=== PATIENT | female | born 1960 | race Caucasian/White ===

== ENCOUNTER 2018-01-09 10:29 | Observation (INO) ==
[2018-01-09] MEDS ORDERED: Sod Chloride 0.9% Inj 1,000 ML IV.SIG ONE (11:23)
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
[2018-01-09 12:10] VITALS: TEMP 98.5
[2018-01-09 12:13] LABS: Baso # (Auto) 0.1 th/mm3 (0.0-0.2); Baso % (Auto) 0.6 % (0.0-2.0); Eos % (Auto) 0.2 % (0.0-4.0); Hematocrit 40.9 % (35.0-46.0); Hemoglobin 13.8 gm/dL (11.6-15.3); Lymph # (Auto) 0.7 th/mm3 (1.0-4.8); Lymph % (Auto) 7.8 % (9.0-44.0); Mean Corpuscular HGB Conc 33.8 % (32.0-36.0); Mean Corpuscular Hemoglobin 30.6 pg (27.0-34.0); Mean Corpuscular Volume 90.7 fL (80.0-100.0); Mono # (Auto) 0.5 th/mm3 (0.0-0.9); Mono % (Auto) 5.8 % (0.0-8.0); Neut % (Auto) 85.6 % (16.0-70.0); Platelet Count 230 th/mm3 (150-450); Red Blood Count 4.51 mil/mm3 (4.00-5.30); Red Cell Distribution Width 11.9 % (11.6-17.2); White Blood Count 9.4 th/mm3 (4.0-11.0)
[2018-01-09 12:42] LABS: Albumin 3.9 g/dL (3.4-5.0); Anion Gap 6 meq/L (5-15); Aspartate Aminotransferase 25 U/L (15-37); Blood Urea Nitrogen 16 mg/dL (7-18); Carbon Dioxide 27.1 meq/L (21.0-32.0); Chloride 107 meq/L (98-107); Glomerular Filtration Rate 73 mL/min (>89); Glucose,Random 101 mg/dL (74-106); Lipase 267 U/L (73-393); Potassium 4.1 meq/L (3.5-5.1); Sodium 140 meq/L (136-145)
[2018-01-09 12:49] LABS: Alanine Aminotransferase 30 U/L (10-53); Alkaline Phosphatase 61 U/L (45-117); Total Protein 7.4 g/dL (6.4-8.2)
--- NOTE | 2018-01-09 14:04 | CT ---
EXAM DATE: 01/09/2018 1:51 PM EDT AGE/SEX: 57 years / Female INDICATIONS: Memory loss last three days. CLINICAL DATA: This is the patient's initial encounter. Patient reports that signs and symptoms have been present for 3 days and indicates a pain score of 0/10. MEDICAL/SURGICAL HISTORY: None. . hernia repair RADIATION DOSE: 66.36 CTDI (mGy) COMPARISON: No prior exams available for comparison. TECHNIQUE: CT of the head without contrast. Using automated exposure control and adjustment of the mA and/or kV according to patient size, radiation dose was kept as low as reasonably achievable to ob tain optimal diagnostic quality images. DICOM format image data is available electronically for revi ew and comparison. FINDINGS: Cerebrum: The ventricles are normal for age. No evidence of midline shift, mass lesion, hemorrhage o r acute infarction. No extraaxial fluid collections are seen. Posterior Fossa: The cerebellum and brainstem are intact. The 4th ventricle is midline. The cerebe llopontine angle is unremarkable. Extracranial: The visualized portion of the orbits is intact. Skull: The calvaria is intact. No evidence of skull fracture. CONCLUSION: 1. No acute intracranial abnormality. . Electronically signed by: Leo Quintanilla MD 01/09/2018 2:02 PM EDT
[2018-01-09] MEDS ORDERED: Bisacodyl 10 MG Supp RECTAL PRN (14:29)
[2018-01-09] MEDS ORDERED: Acetaminophen 325 MG Tablet PO PRN (14:29)
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
--- NOTE | 2018-01-09 15:49 | US ---
EXAM DATE: 01/09/2018 3:46 PM EDT AGE/SEX: 57 years / Female INDICATIONS: Confusion. CLINICAL DATA: This is the patient's initial encounter. Patient reports that signs and symptoms have been present for 1 day and indicates a pain score of 0/10. MEDICAL/SURGICAL HISTORY: . Altered mental status changes. . Hernia repair. Dilation and Cure ttage. COMPARISON: No prior exams available for comparison. VELOCITY PARAMETERS: ICA/CCA Ratio: Right 1.0 , Left 1.0 ICA: Right 90 cm/sec, Left 103 cm/sec CCA: Right 89 cm/sec, Left 105 cm/sec ECA: Right 62 cm/sec, Left 92 cm/sec Vertebral: Right 71 cm/sec antegrade, Left 67 cm/sec antegrade FINDINGS: Right Carotid: No significant plaque is visualized.The waveforms are within normal limits. Left Carotid: No significant plaque is visualized. The waveforms are within normal limits. Other: None. CONCLUSION: 1. Right Internal Carotid Artery: No significant stenosis or atherosclerotic plaque is visualized. 2. Left Internal Carotid Artery: No significant stenosis or atherosclerotic plaque is visualized. Electronically signed by: Leo Quintanilla MD 01/09/2018 3:48 PM EDT
--- NOTE | 2018-01-09 16:37 | MR ---
EXAM DATE: 01/09/2018 4:24 PM EDT AGE/SEX: 57 years / Female INDICATIONS: Memory loss. CLINICAL DATA: This is the patient's initial encounter. Patient reports that signs and symptoms have been present for 1 day and indicates a pain score of 0/10. MEDICAL/SURGICAL HISTORY: None. Inguinal hernia repair. COMPARISON: [facility] [place], 01/09/2018. . TECHNIQUE: 3D [id number] MRA was performed. Source images, multiplanar STS MIP, and 3D volum e MIP reconstructions were reviewed. FINDINGS: Anterior Circulation: Intracranial Carotid Arteries: Patent. WOLF: There is no evidence for aneurysm, vessel truncation or stenosis, and no evidence for vascular m alformation. MCA: There is no evidence for aneurysm, vessel truncation or stenosis, and no evidence for vascular m alformation. Posterior Circulation: Distal Vertebral Arteries: Distal Vertebral arteries are symetrical and patent. Basilar Artery: There is no evidence for aneurysm, vessel truncation or stenosis, and no evidence for vascular malformation. INSULATION BLOWER and Cerebellar Branches: origin of the left INSULATION BLOWER. There is no evidence for aneurysm, vessel truncation or stenosis, and no evidence for vascular malformation. CONCLUSION: 1. Negative MRA [place] ([place]) non contrast. Electronically signed by: Leo Quintanilla MD 01/09/2018 4:36 PM EDT
--- NOTE | 2018-01-09 16:46 | MR ---
EXAM DATE: 01/09/2018 4:19 PM EDT AGE/SEX: 57 years / Female INDICATIONS: Memory loss. CLINICAL DATA: This is the patient's initial encounter. Patient reports that signs and symptoms have been present for 1 day and indicates a pain score of 0/10. MEDICAL/SURGICAL HISTORY: None. Inguinal hernia repair. COMPARISON: No prior exams available for comparison. TECHNIQUE: Multiplanar, multisequence examination of the brain was performed without contrast. FINDINGS: Cerebrum: The ventricles are normal for age. No evidence of midline shift, mass lesion, hemorrhage or acute infarction. No extraaxial fluid collections are seen. The pituitary gland and suprasellar cistern are normal in configuration. White Matter: No significant signal abnormalities are seen in the white matter. Posterior Fossa: The cerebellum and brainstem are intact. The 4th ventricle is midline. The cerebel lopontine angle is unremarkable. The cerebellar tonsils are normal in position. Diffusion Imaging: No focal areas of restricted diffusion are seen. No evidence of acute infarction . Extracranial: 1.5 cm polyp or retention cyst in the left maxillary sinus. CONCLUSION: Left-sided maxillary sinus polyp or retention cyst. Brain MRI otherwise within normal limits. Electronically signed by: Jonathan Carreon MD 01/09/2018 4:45 PM EDT
[2018-01-09] MEDS: Sod Chloride 0.9% Inj 1,000 ML IV.CONT SCH (18:04)
[2018-01-09] MEDS: levoFLOXacin 750 MG Tablet PO SCH (18:04)
[2018-01-10] MEDS: Sod Chloride 0.9% Inj 1,000 ML IV.CONT SCH (01:23)
[2018-01-10] MEDS: levoFLOXacin 750 MG Tablet PO SCH (09:11)
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
--- NOTE | 2018-01-10 14:28 | ECG ---
Date Performed: 01/09/2018 Time Performed: 11:34:14 PTAGE: 57 years EKG: Sinus rhythm POSSIBLE RIGHT VENTRICULAR CONDUCTION DELAY BORDERLINE ECG NO PREVIOUS TRACING DOCTOR: Vale Jones Interpretating Date/Time 01/10/2018 14:26:58
[2018-01-13 17:54] VITALS: BP 101/68; PULSE 79; RESP 20; O2SAT 98
== END 2018-01-10 10:09 | disposition home or self-care (01) ==
LOC: NEDA 10:29 → NEPD 10:29 → N06 10:29 → NEDA 15:51 → N06 16:33
PROVIDERS: ADMIT Hospitalist; ATTEND Hospitalist